=== PATIENT | female | born 1985 | race Caucasian/White ===

== ENCOUNTER 2016-05-30 15:27 | Emergency (ER) | payer MEDICAID ==
[2016-05-30] MEDS ORDERED: ONDANSETRON 4 MG TAB.RAPDIS PO ONE (16:43)
--- NOTE | 2016-05-30 16:44 | ER Document Report ---
ED Medical Screen (RME) - General Stated Complaint: ABDOMINAL PAIN Notes: Patient complains of left upper quadrant pain for 2 days. Patient states the pain is so bad it makes her feel nauseous, but denies vomiting or diarrhea. No known fever. Patient states she was told she had gallbladder sludge about 3 years ago, but never had it removed. Patient states pain shooting through to back. I have greeted and performed a rapid initial assessment of this patient. A comprehensive ED assessment and evaluation of the patient, analysis of test results and completion of the medical decision making process will be conducted by additional ED providers. TRAVEL OUTSIDE OF THE [place] IN LAST 30 DAYS: No - Related Data Allergies/Adverse Reactions: No Known Allergies Allergy (Verified 05/30/16 16:41) Past Medical History - Social History Family history: Reviewed & Not Pertinent - Past Medical History Cardiac Medical History: Denies: Hx Coronary Artery Disease, Hx Hypertension Pulmonary Medical History: Reports: Hx Asthma, Hx Bronchitis Neurological Medical History: Reports: Hx Migraine Endocrine Medical History: Denies: Hx Diabetes Mellitus Type 1, Hx Diabetes Mellitus Type 2 Renal/ Medical History: Reports: Hx Ovarian Cysts Malignancy Medical History: Reports: Hx Cervical Cancer - dysplasia, hpv GI Medical History: Reports: Hx Gastritis, Hx Gastroesophageal Reflux Disease Skin Medical History: Reports Hx Cellulitis, Reports Hx MRSA Infectious Medical History: Reports: Hx MRSA Past Surgical History: Reports: Hx Section - x2, Hx Gynecologic Surgery - 6 Álvaro laser surgery, Hx Oral Surgery - Immunizations Immunizations up to date: Yes Hx Diphtheria, Pertussis, Tetanus Vaccination: Yes - <5 years Physical Exam - Vital signs Vitals: Temp Pulse Resp BP Pulse Ox 99.0 F 104 H 20 112/74 99 05/30/16 15:48 05/30/16 15:48 05/30/16 15:48 05/30/16 15:48 05/30/16 15:48 - Abdominal Inspection: Normal Notes: Left upper quadrant tender to palpation, causes radiation to left lower quadrant. Also tender over epigastric area. Course - Vital Signs Vital signs: Temp Pulse Resp BP Pulse Ox 99.0 F 104 H 20 112/74 99 05/30/16 15:48 05/30/16 15:48 05/30/16 15:48 05/30/16 15:48 05/30/16 15:48
[2016-05-30 17:09] LABS: ABSOLUTE BASOPHILS # (AUTO) 0.1 10^3/uL (0.0-0.2); ABSOLUTE LYMPHOCYTES (AUTO) 0.5 10^3/uL (0.5-4.7); ABSOLUTE MONOCYTES (AUTO) 0.9 10^3/uL (0.1-1.4); ABSOLUTE NEUT (AUTO) 7.5 10^3/uL (1.7-8.2); BASOPHILS % (AUTO) 0.7 % (0-2); EOSINOPHILS % (AUTO) 0.4 % (0-6); HEMATOCRIT 46.8 % (36.0-47.0); HGB HCT DIFFERENCE 1.2; LYMPHOCYTES % (AUTO) 5.5 % (13-45); MEAN CORPUSCULAR HEMOGLOBIN 28.6 pg (27.0-33.4); MEAN CORPUSCULAR HGB CONC 34.1 g/dL (32.0-36.0); MEAN CORPUSCULAR VOLUME 84 fl (80-97); MONOCYTES % (AUTO) 9.8 % (3-13); RED BLOOD COUNT 5.59 10^6/uL (3.72-5.28); RED CELL DISTRIBUTION WIDTH 14.2 % (11.5-14.0); SEGMENTED NEUTROPHILS % (AUTO) 83.6 % (42-78); WHITE BLOOD COUNT 8.9 10^3/uL (4.0-10.5)
[2016-05-30 17:22] LABS: APPEARANCE,URINE SLIGHTLY-CLOUDY; BILIRUBIN,URINE NEGATIVE (NEGATIVE); GLUCOSE, URINE NEGATIVE (NEGATIVE); KETONES,URINE NEGATIVE (NEGATIVE); LEUKOCYTE ESTERASE,URINE NEGATIVE (NEGATIVE); NITRITE,URINE NEGATIVE (NEGATIVE); PROTEIN,URINE NEGATIVE (NEGATIVE); URINE SPECIFIC GRAVITY 1.011; UROBILINOGEN,URINE NEGATIVE mg/dL (<2.0)
[2016-05-30 17:34] LABS: ALANINE AMINOTRANSFERASE 26 U/L (9-52); ALBUMIN 5.1 g/dL (3.5-5.0); ALKALINE PHOSPHATASE 93 U/L (38-126); ANION GAP 14 (5-19); ASPARTATE AMINO TRANSFERASE 16 U/L (14-36); BILIRUBIN,DIRECT 0.1 mg/dL (0.0-0.4); BLOOD UREA NITROGEN 7 mg/dL (7-20); CALCIUM 10.7 mg/dL (8.4-10.2); CARBON DIOXIDE 26 mmol/L (22-30); CHLORIDE 104 mmol/L (98-107); CREATININE RESULT 0.44 mg/dL (0.52-1.25); GLUCOSE 100 mg/dL (75-110); LIPASE 143.2 U/L (23-300); POTASSIUM 4.5 mmol/L (3.6-5.0); SODIUM 144.3 mmol/L (137-145); TOTAL PROTEIN 7.5 g/dL (6.3-8.2)
[2016-05-30] MEDS ORDERED: METOCLOPRAMIDE HCL ORAL SOLN 10 MG/10 ML UDCUP PO ONE (22:07)
[2016-05-30] MEDS ORDERED: LIDOCAINE 2% VISCOUS SOLN 20 ML UDCUP PO ONE (22:07)
[2016-05-30] MEDS ORDERED: MAG HYDROX/AL HYDROX/SIMETH SUSP 30 ML UDCUP PO ONE (22:07)
[2016-05-30] MEDS ORDERED: HYDROCODONE/ACETAMINOPHEN 5-325 MG 6 TAB/DSPK PO PRN (22:07)
--- NOTE | 2016-05-30 22:09 | ER Document Report ---
ED GI/ - General Chief Complaint: Abdominal Pain Stated Complaint: ABDOMINAL PAIN Time seen by provider: 22:09 Mode of Arrival: Ambulatory Information source: Patient TRAVEL OUTSIDE OF THE [place] IN LAST 30 DAYS: No - HPI Patient complains to provider of: Abdominal pain Onset: Other - 2 days Timing/Duration: Persistent Quality of pain: Achy, Cramping Severity at maximum: Moderate Severity in ED: Moderate Pain Level: 3 Location: Epigastric, LUQ Associated symptoms: Nausea. denies: Diarrhea, Vomiting Exacerbated by: Denies Relieved by: Denies Similar symptoms previously: Yes Notes: 05/31/16 02:56 Patient is a 30-year-old female who presents to the emergency room complaining of epigastric and left upper quadrant pain that's been going on for the past 2 days, she reports nausea but no vomiting or diarrhea, states her last bowel movement was this morning and small, her last menstrual period was in 2009 because she has an IUD placed, she denies any vaginal discharge or irregular bleeding, denies any dysuria or hematuria - Related Data Allergies/Adverse Reactions: No Known Allergies Allergy (Verified 05/30/16 16:41) Past Medical History - General Information source: Patient - Social History Smoking Status: Current Every Day Smoker Chew tobacco use (# tins/day): No Frequency of alcohol use: None Drug Abuse: None Family History: None Patient has suicidal ideation: No Patient has homicidal ideation: No - Past Medical History Cardiac Medical History: Denies: Hx Coronary Artery Disease, Hx Hypertension Pulmonary Medical History: Reports: Hx Asthma, Hx Bronchitis Neurological Medical History: Reports: Hx Migraine Endocrine Medical History: Denies: Hx Diabetes Mellitus Type 1, Hx Diabetes Mellitus Type 2 Renal/ Medical History: Reports: Hx Ovarian Cysts. Denies: Hx Peritoneal Dialysis Malignancy Medical History: Reports: Hx Cervical Cancer - dysplasia, hpv GI Medical History: Reports: Hx Gastritis, Hx Gastroesophageal Reflux Disease Skin Medical History: Reports Hx Cellulitis, Reports Hx MRSA Infectious Medical History: Reports: Hx MRSA Past Surgical History: Reports: Hx Section - x2, Hx Gynecologic Surgery - 6 Álvaro laser surgery, Hx Oral Surgery - Immunizations Immunizations up to date: Yes Hx Diphtheria, Pertussis, Tetanus Vaccination: Yes - <5 years Review of Systems - Review of Systems Constitutional: No symptoms reported EENT: No symptoms reported Cardiovascular: No symptoms reported Respiratory: No symptoms reported Gastrointestinal: See HPI Genitourinary: No symptoms reported Female Genitourinary: No symptoms reported Musculoskeletal: No symptoms reported Skin: No symptoms reported Hematologic/Lymphatic: No symptoms reported Neurological/Psychological: No symptoms reported -: Yes All other systems reviewed and negative Physical Exam - Vital signs Vitals: Temp Pulse Resp BP Pulse Ox 99.0 F 104 H 20 112/74 99 05/30/16 15:48 05/30/16 15:48 05/30/16 15:48 05/30/16 15:48 05/30/16 15:48 Interpretation: Normal - General General appearance: Appears well, Alert - HEENT Head: Normocephalic, Atraumatic Eyes: Normal Pupils: PERRL - Respiratory Respiratory status: No respiratory distress Chest status: Nontender Breath sounds: Normal Chest palpation: Normal - Cardiovascular Rhythm: Regular Heart sounds: Normal auscultation Murmur: No - Abdominal Inspection: Normal Distension: No distension Bowel sounds: Normal Tenderness: Tender - Epigastric Organomegaly: No organomegaly - Back Back: Normal, Nontender - Extremities General upper extremity: Normal inspection, Nontender, Normal color, Normal ROM , Normal temperature General lower extremity: Normal inspection, Nontender, Normal color, Normal ROM , Normal temperature, Normal weight bearing. No: Ron's sign - Neurological Neuro grossly intact: Yes Cognition: Normal Orientation: AAOx4 Tim Coma Scale Eye Opening: Spontaneous Tim Coma Scale Verbal: Oriented [place] Coma Scale Motor: Obeys Commands [place] Coma Scale Total: 15 Speech: Normal Motor strength normal: LUE, RUE, LLE, RLE Sensory: Normal - Psychological Associated symptoms: Normal affect, Normal mood - Skin Skin Temperature: Warm Skin Moisture: Dry Skin Color: Normal Course - Re-evaluation Re-evalutation: 05/31/16 02:57 Laboratory findings were discussed with patient at bedside which are unremarkable, patient is noted to be a frequent visitor to this emergency room for multiple pain complaints in the past, therefore she was not provided with a prescription for narcotic pain medication, she was advised to follow-up with her primary care provider or return if symptoms worsen, patient acknowledges understanding and agreement with this plan - Vital Signs Vital signs: Temp Pulse Resp BP Pulse Ox 98.7 F 88 20 111/63 98 05/30/16 22:38 05/30/16 22:38 05/30/16 22:38 05/30/16 22:38 05/30/16 22:38 - Laboratory Result Diagrams: 05/30/16 16:45 05/30/16 16:45 Laboratory results interpreted by me: 05/30/16 05/30/16 16:45 16:45 RBC 5.59 H Hgb 16.0 H RDW 14.2 H Seg Neutrophils % 83.6 H Lymphocytes % 5.5 L Creatinine 0.44 L Calcium 10.7 H Albumin 5.1 H Discharge - Discharge Clinical Impression: Epigastric abdominal pain Condition: Stable Disposition: HOME, SELF-CARE Instructions: Abdominal Pain ([facility]) Additional Instructions: Follow up with your primary care provider in one to 2 days. Return to the emergency room immediately if symptoms worsen or any additional concerns. Prescriptions: Esomeprazole Mag Trihydrate [Nexium] 40 mg PO DAILY #30 cap Referrals: JOHN ESQUIVEL MD [Primary Care Provider] - Follow up as needed
[2016-05-30 22:40] VITALS: BP 111/63
== END 2016-05-30 22:15 | disposition home or self-care (01) ==
LOC: ER 15:27
DX: R10.13 Epigastric pain (principal); R10.12 Left upper quadrant pain; R11.0 Nausea; F17.200 Nicotine dependence, unspecified, uncomplicated; J45.909 Unspecified asthma, uncomplicated; Z97.5 Presence of (intrauterine) contraceptive device; Z86.14 Personal history of Methicillin resistant Staphylococcus aureus infection; Z87.42 Personal history of other diseases of the female genital tract; Z87.19 Personal history of other diseases of the digestive system
CPT/HCPCS: 99284; 36415; 84702; 83690; 85025; 80053; 81001; S0119; J3490 ×3

== ENCOUNTER 2016-09-13 19:02 | Emergency (ER) | payer MEDICAID ==
--- NOTE | 2016-09-13 21:36 | ER Document Report ---
HPI - HPI Pain Level: 3 Notes: Patient is a 30-year-old female who presents the ED complaining of infection to both of her thumbs 1 week with worsening pain over the last 4 days. Patient states that she believes she got bit by something on her thumbs and the began getting red and swollen a few days thereafter. She has been using triple antibiotic and soaking it daily. Patient states that she does have a history of MRSA. She still eating and drinking without any problems. Denies any drug allergies. Patient states that she does take medications daily for mental health issues. She denies any headache, fever, URI, sore throat, chest pain, palpitations, cough, wheeze, shortness of breath, abdominal pain, nausea/ vomiting/diarrhea, muscle paralysis/weakness. Patient does smoke but denies any illicit drug use. Denies any other significant past medical history - ROS Notes: REVIEW OF SYSTEMS: CONSTITUTIONAL : Denies fever, chills, or sweats. Denies recent illness. EENT: Denies eye, ear, throat, or mouth pain or symptoms. Denies nasal or sinus congestion or discharge. Denies throat, tongue, or mouth swelling or difficulty swallowing. CARDIOVASCULAR: Denies chest pain. Denies palpitations or racing or irregular heart beat. Denies ankle edema. RESPIRATORY: Denies cough, cold, or chest congestion. Denies shortness of breath, difficulty breathing, or wheezing. GASTROINTESTINAL: Denies abdominal pain or distention. Denies nausea, vomiting , or diarrhea. Denies blood in vomitus, stools, or per rectum. Denies black, tarry stools. Denies constipation. GENITOURINARY: Denies difficulty urinating, painful urination, burning, frequency, blood in urine, or discharge. MUSCULOSKELETAL: Denies back or neck pain or stiffness. Denies joint pain or swelling. SKIN: see hpi NEUROLOGICAL: Denies confusion or altered mental status. Denies passing out or loss of consciousness. Denies dizziness or lightheadedness. Denies headache. Denies weakness or paralysis or loss of use of either side. Denies problems with gait or speech. Denies sensory loss, numbness, or tingling. ALL OTHER SYSTEMS REVIEWED AND NEGATIVE. Dictation was performed using [employer] voice recognition software - REPRODUCTIVE Reproductive: DENIES: : - DERM Skin Color: Normal Past Medical History - Social History Smoking Status: Current Every Day Smoker Family History: None Patient has suicidal ideation: No Patient has homicidal ideation: No - Past Medical History Cardiac Medical History: Denies: Hx Coronary Artery Disease, Hx Hypertension Pulmonary Medical History: Reports: Hx Asthma, Hx Bronchitis Neurological Medical History: Reports: Hx Migraine Endocrine Medical History: Denies: Hx Diabetes Mellitus Type 1, Hx Diabetes Mellitus Type 2 Renal/ Medical History: Reports: Hx Ovarian Cysts. Denies: Hx Peritoneal Dialysis Malignancy Medical History: Reports: Hx Cervical Cancer - dysplasia, hpv GI Medical History: Reports: Hx Gastritis, Hx Gastroesophageal Reflux Disease Skin Medical History: Reports Hx Cellulitis, Reports Hx MRSA Infectious Medical History: Reports: Hx MRSA Past Surgical History: Reports: Hx Section - x2, Hx Gynecologic Surgery - 6 Álvaro laser surgery, Hx Oral Surgery - Immunizations Immunizations up to date: Yes Hx Diphtheria, Pertussis, Tetanus Vaccination: Yes - <5 years Vertical Provider Document - CONSTITUTIONAL Agree With Documented VS: Yes Notes: PHYSICAL EXAMINATION: GENERAL: Well-appearing, well-nourished and in no acute distress. NECK: Normal range of motion, supple without lymphadenopathy LUNGS: Breath sounds clear to auscultation bilaterally and equal. No wheezes rales or rhonchi. HEART: Regular rate and rhythm without murmurs, rubs, gallops. Musculoskeletal: hands/digits b/l: FROM to passive/active. Strength 5+/5. Extremities: No cyanosis, clubbing, or edema b/l. Peripheral pulses 2+. Capillary refill less than 3 seconds. NEUROLOGICAL: Cranial nerves grossly intact. Normal speech, normal gait. Normal sensory, motor exams PSYCH: Normal mood, normal affect. SKIN: + erythema, small (0.1-0.2cm) abscess, + purulent discharge, + tenderness to the rt thumb. Mild erythemic area to the left thumb. No lymphangitis. No prox lymphadenopathy. N/V intact. Pustular material expressed and wound cx obtained. No large enough for an I&D. - INFECTION CONTROL TRAVEL OUTSIDE OF THE [place] IN LAST 30 DAYS: No - RESPIRATORY O2 Sat by Pulse Oximetry: 100 Course - Re-evaluation Re-evalutation: 09/13/16 21:40 Patient is an afebrile, well-hydrated, 30-year-old female presents to the ED with a mild abscess/cellulitis to her right thumb and mild cellulitis to the left thumb. 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 Vitals are stable. PE otherwise unremarkable. Low suspicion for any septic joint or sepsis at this time. Wound culture obtained. The purulent material was completely expressed from the abscess on an already opened area. Bacitracin and Band-Aid placed. I will cover her with Keflex and Bactrim. Recheck with her PCM in 2-3 days. Return to the ED with any worsening/concerning symptoms otherwise as reviewed. Patient is in agreement. - Vital Signs Vital signs: Temp Pulse Resp BP Pulse Ox 98.1 F 81 16 111/72 100 09/13/16 19:10 09/13/16 19:10 09/13/16 19:10 09/13/16 19:10 09/13/16 19:10 Discharge - Discharge Clinical Impression: Abscess Condition: Stable Disposition: HOME, SELF-CARE Instructions: Abscess ([facility]), Cephalexin ([facility]), Trimethoprim-Sulfa ([facility]) Additional Instructions: Take medication as directed Tylenol/ibuprofen as needed Apply bacitracin Recheck with PCM in 2-3 days Return to the ED with any worsening symptoms and/or development of fever, headache, chest pain, palpitations, syncope, shortness of breath, trouble breathing, abdominal pain, n/v/d, muscle weakness/paralysis, numbness/tingling, red streaks, or other worsening symptoms that are concerning to you. Prescriptions: Cephalexin Monohydrate [Keflex 500 mg Capsule] 500 mg PO BID #20 capsule Sulfamethoxazole/Trimethoprim [Bactrim Ds Tablet] 1 each PO BID #20 tablet Forms: Smoking Cessation Education Referrals: JOHN ESQUIVEL MD [ACTIVE STAFF] - Follow up in 3-5 days
[2016-09-13 22:02] VITALS: BP 101/62
== END 2016-09-13 22:00 | disposition home or self-care (01) ==
LOC: ER 19:02
DX: L02.511 Cutaneous abscess of right hand (principal); L03.011 Cellulitis of right finger; L03.012 Cellulitis of left finger; J45.909 Unspecified asthma, uncomplicated; F17.200 Nicotine dependence, unspecified, uncomplicated; Z86.14 Personal history of Methicillin resistant Staphylococcus aureus infection; Z79.899 Other long term (current) drug therapy
CPT/HCPCS: 87070; 87075; 87077; 87186; 87205; 99283

== ENCOUNTER 2017-05-07 18:11 | Emergency (ER) | payer MEDICAID, OTHER ==
[2017-05-07] MEDS ORDERED: ACETAMINOPHEN 325 MG TABLET PO ONE (18:43)
[2017-05-07] MEDS ORDERED: IBUPROFEN 600 MG TABLET PO ONE (18:43)
[2017-05-07] MEDS ORDERED: LIDOCAINE 5% (700 MG) TRANSDERMAL ADH..PATCH TP ONE (18:43)
--- NOTE | 2017-05-07 19:05 | RADIOLOGY REPORT (SQ) ---
EXAM DESCRIPTION: CHEST SINGLE VIEW COMPLETED DATE/TIME: 05/07/2017 6:53 pm REASON FOR STUDY: cp COMPARISON: May 2015 EXAM PARAMETERS: NUMBER OF VIEWS: One view. TECHNIQUE: Single frontal radiographic view of the chest acquired. RADIATION DOSE: NA LIMITATIONS: None. FINDINGS: LUNGS AND PLEURA: No opacities, masses or pneumothorax. No pleural effusion. MEDIASTINUM AND HILAR STRUCTURES: No masses. Contour normal. HEART AND VASCULAR STRUCTURES: Heart normal in size. Normal vasculature. BONES: No acute findings. HARDWARE: None in the chest. OTHER: No other significant finding. IMPRESSION: NO ACUTE RADIOGRAPHIC FINDING IN THE CHEST. TECHNICAL DOCUMENTATION: JOB ID: [id number] 2017 [employer]- All Rights Reserved Reading location - IP/workstation name: [email or web address]
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
[2017-05-07 19:40] VITALS: BP 109/71
--- NOTE | 2017-05-07 21:57 | EKG REPORT ---
SEVERITY:- NORMAL ECG - SINUS RHYTHM : Confirmed by: Jesse Quarles 07-May-2017 21:56:59
== END 2017-05-07 19:40 | disposition home or self-care (01) ==
LOC: ER 18:11
DX: R07.89 Other chest pain (principal); M54.9 Dorsalgia, unspecified; F17.200 Nicotine dependence, unspecified, uncomplicated; V47.5XXA Car driver injured in collision with fixed or stationary object in traffic accident, initial encounter; Z86.14 Personal history of Methicillin resistant Staphylococcus aureus infection
CPT/HCPCS: 71045; 93005; 93010; 99284

== ENCOUNTER 2017-06-30 16:22 | Emergency (ER) | payer MEDICAID ==
[2017-06-30] MEDS ORDERED: KETOROLAC TROMETHAMINE INJ/PF 30 MG/1 ML SDV IM ONE (16:42)
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
--- NOTE | 2017-06-30 17:09 | RADIOLOGY REPORT (SQ) ---
EXAM DESCRIPTION: TIBIA FIBULA RIGHT COMPLETED DATE/TIME: 06/30/2017 4:56 pm REASON FOR STUDY: leg pain s/p fall COMPARISON: None. NUMBER OF VIEWS: Two views. TECHNIQUE: Two radiographic images acquired of the right tibia and fibula to include the knee and an kle in at least one projection. LIMITATIONS: None. FINDINGS: MINERALIZATION: Normal. BONES: No acute fracture or dislocation. No worrisome bone lesions. SOFT TISSUES: No obvious swelling or foreign body. OTHER: No other significant finding. IMPRESSION: NEGATIVE STUDY OF THE RIGHT TIBIA AND FIBULA. NO RADIOGRAPHIC EVIDENCE OF ACUTE INJURY. TECHNICAL DOCUMENTATION: JOB ID: [id number] [employer]- All Rights Reserved Reading location - IP/workstation name: [email or web address]
--- NOTE | 2017-06-30 17:09 | RADIOLOGY REPORT (SQ) ---
EXAM DESCRIPTION: HIP RIGHT AP/LATERAL COMPLETED DATE/TIME: 06/30/2017 4:56 pm REASON FOR STUDY: leg pain s/p fall COMPARISON: None. NUMBER OF VIEWS: Two views. TECHNIQUE: AP pelvis and additional frog-leg view of the right hip. LIMITATIONS: None. FINDINGS: MINERALIZATION: Normal. RIGHT HIP: No fracture or dislocation. No worrisome bone lesions. LEFT HIP: No fracture or dislocation. No worrisome bone lesions. PUBIS AND ISCHIUM: No fracture. PELVIS: No fracture. SACRUM: No fracture or dislocation. No worrisome bone lesions. LOWER LUMBAR SPINE: No fracture or dislocation. No worrisome bone lesions. No significant disc disea se. SOFT TISSUES: IUD in the uterus. OTHER: No other significant finding. IMPRESSION: NEGATIVE STUDY OF THE RIGHT HIP. NO RADIOGRAPHIC EVIDENCE OF ACUTE INJURY. TECHNICAL DOCUMENTATION: JOB ID: [id number] [employer]- All Rights Reserved Reading location - IP/workstation name: [email or web address]
== END 2017-06-30 17:32 | disposition home or self-care (01) ==
LOC: ER 16:22
DX: M79.661 Pain in right lower leg (principal); M70.61 Trochanteric bursitis, right hip; M46.1 Sacroiliitis, not elsewhere classified; M25.551 Pain in right hip; W10.9XXA Fall (on) (from) unspecified stairs and steps, initial encounter; R25.2 Cramp and spasm; M54.9 Dorsalgia, unspecified; G89.29 Other chronic pain; Z79.891 Long term (current) use of opiate analgesic; F17.200 Nicotine dependence, unspecified, uncomplicated; J45.909 Unspecified asthma, uncomplicated
CPT/HCPCS: 99283; 96372; 73502; 73590; J1885

== ENCOUNTER 2018-01-19 15:21 | Emergency (ER) | payer MEDICAID ==
[2018-01-19] MEDS ORDERED: LIDOCAINE 2% VISCOUS SOLN 20 ML UDCUP PO ONE (16:01)
[2018-01-19] MEDS ORDERED: METOCLOPRAMIDE HCL ORAL SOLN 10 MG/10 ML UDCUP PO ONE (16:01)
[2018-01-19] MEDS ORDERED: KETOROLAC TROMETHAMINE INJ/PF 30 MG/1 ML SDV IV ONE (16:01)
[2018-01-19] MEDS ORDERED: MAG HYDROX/AL HYDROX/SIMETH SUSP 30 ML UDCUP PO ONE (16:01)
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
--- NOTE | 2018-01-19 16:52 | RADIOLOGY REPORT (SQ) ---
EXAM DESCRIPTION: U/S ABDOMEN LIMITED W/O DOP COMPLETED DATE/TIME: 01/19/2018 4:41 pm REASON FOR STUDY: ruq pain, hx of sludge COMPARISON: None. TECHNIQUE: Dynamic and static grayscale images acquired of the abdomen and recorded on PACS. Additio nal selected color Doppler and spectral images recorded. LIMITATIONS: None. FINDINGS: PANCREAS: No masses. Visualized pancreatic duct normal caliber. LIVER: No masses. Echotexture normal. LIVER VASCULATURE: Normal directional flow of the main portal vein and hepatic veins. GALLBLADDER: No stones. Normal wall thickness. No pericholecystic fluid. ULTRASOUND-DETECTED STEPHENS'S SIGN: Negative. INTRAHEPATIC DUCTS AND COMMON DUCT: CBD and intrahepatic ducts normal caliber. No filling defects. INFERIOR VENA CAVA: Normal flow. AORTA: No aneurysm. RIGHT KIDNEY: Normal size. Normal echogenicity. No solid or suspicious masses. No hydronephrosis. No calcifications. PERITONEAL AND RIGHT PLEURAL SPACE: No ascites or effusions. OTHER: No other significant findings. IMPRESSION: NORMAL RIGHT UPPER QUADRANT ULTRASOUND. TECHNICAL DOCUMENTATION: JOB ID: [id number] [employer]- All Rights Reserved Reading location - IP/workstation name: [email or web address]
[2018-01-19 17:29] LABS: ABSOLUTE LYMPHOCYTES (AUTO) 0.5 10^3/uL (0.5-4.7); ABSOLUTE MONOCYTES (AUTO) 0.4 10^3/uL (0.1-1.4); BASOPHILS % (AUTO) 0.5 % (0-2); EOSINOPHILS % (AUTO) 0.5 % (0-6); HEMATOCRIT 42.2 % (36.0-47.0); HEMOGLOBIN 14.5 g/dL (12.0-15.5); LYMPHOCYTES % (AUTO) 5.1 % (13-45); MEAN CORPUSCULAR HEMOGLOBIN 29.2 pg (27.0-33.4); MEAN CORPUSCULAR HGB CONC 34.4 g/dL (32.0-36.0); MEAN CORPUSCULAR VOLUME 85 fl (80-97); MONOCYTES % (AUTO) 4.4 % (3-13); PLATELET COUNT 364 10^3/uL (150-450); RED BLOOD COUNT 4.97 10^6/uL (3.72-5.28); RED CELL DISTRIBUTION WIDTH 14.1 % (11.5-14.0); SEGMENTED NEUTROPHILS % (AUTO) 89.5 % (42-78); TOTAL CELLS COUNTED % (AUTO) 100 %; WHITE BLOOD COUNT 8.9 10^3/uL (4.0-10.5)
[2018-01-19 17:35] LABS: APPEARANCE,URINE CLOUDY; BILIRUBIN,URINE NEGATIVE (NEGATIVE); COLOR,URINE YELLOW; GLUCOSE, URINE NEGATIVE (NEGATIVE); KETONES,URINE NEGATIVE (NEGATIVE); LEUKOCYTE ESTERASE,URINE NEGATIVE (NEGATIVE); NITRITE,URINE POSITIVE (NEGATIVE); PROTEIN,URINE 30 mg/dL (NEGATIVE); URINE SPECIFIC GRAVITY 1.021; UROBILINOGEN,URINE NEGATIVE mg/dL (<2.0)
[2018-01-19 17:37] LABS: ALANINE AMINOTRANSFERASE 15 U/L (9-52); ALBUMIN 4.4 g/dL (3.5-5.0); ALKALINE PHOSPHATASE 85 U/L (38-126); ANION GAP 15 (5-19); ASPARTATE AMINO TRANSFERASE 15 U/L (14-36); BILIRUBIN,DIRECT 0.1 mg/dL (0.0-0.4); BILIRUBIN,TOTAL 0.8 mg/dL (0.2-1.3); BLOOD UREA NITROGEN 9 mg/dL (7-20); CALCIUM 9.6 mg/dL (8.4-10.2); CARBON DIOXIDE 25 mmol/L (22-30); CHLORIDE 102 mmol/L (98-107); GLUCOSE 116 mg/dL (75-110); LIPASE 103.2 U/L (23-300); POTASSIUM 4.4 mmol/L (3.6-5.0); SODIUM 142.1 mmol/L (137-145); TOTAL PROTEIN 6.9 g/dL (6.3-8.2)
--- NOTE | 2018-01-19 18:19 | ER Document Report ---
ED General - General Chief Complaint: Abdominal Pain Stated Complaint: UPPER ABDOMINAL PAIN Time Seen by Provider: 01/19/18 15:55 Notes: Patient is a 32-year-old female presenting to the emergency department complaining of 4 days of sharp epigastric abdominal pain. Patient states nothing makes the pain better or worse. Patient also admits to 3 episodes of vomiting each day nonbloody nonbilious. Patient denies any diarrhea, dysuria, vaginal discharge. Patient states she has a history of chronic lower back pain she takes Vicodin and 800 mg of ibuprofen for. States in the last couple of weeks her lower back pain has been intense so she has been taking 2 of the 800 mg Motrin's every 6 hours to help for the pain. Patient states she ran out of her Vicodin prescription. Patient denies vomiting blood, or any black stools. Past medical history: Chronic lumbar back pain Medications: Zanaflex, Vicodin, 800 mg Motrin Allergies: None Surgical history: , LEEP procedure Patient admits to cigarette smoking, occasional EtOH use, denies illicit drug use. TRAVEL OUTSIDE OF THE [place] IN LAST 30 DAYS: No - Related Data Allergies/Adverse Reactions: No Known Allergies Allergy (Verified 01/19/18 15:22) Past Medical History - General Information source: Patient - Social History Smoking Status: Current Every Day Smoker Chew tobacco use (# tins/day): No Frequency of alcohol use: Rare Drug Abuse: None Lives with: Family Family History: Arthritis. denies: CAD, COPD, CVA, DM, Hyperlipidemia, Hypertension, Malignancy, Thyroid Disfunction Patient has suicidal ideation: No Patient has homicidal ideation: No - Past Medical History Cardiac Medical History: Denies: Hx Coronary Artery Disease, Hx Hypertension Pulmonary Medical History: Reports: Hx Asthma, Hx Bronchitis Neurological Medical History: Reports: Hx Migraine Endocrine Medical History: Denies: Hx Diabetes Mellitus Type 1, Hx Diabetes Mellitus Type 2 Renal/ Medical History: Reports: Hx Ovarian Cysts. Denies: Hx Peritoneal Dialysis Malignancy Medical History: Reports: Hx Cervical Cancer - dysplasia, hpv GI Medical History: Reports: Hx Gastritis, Hx Gastroesophageal Reflux Disease Musculoskeletal Medical History: Reports Hx Musculoskeletal Deformity, Reports Hx Musculoskeletal Trauma Skin Medical History: Reports Hx Cellulitis, Reports Hx MRSA Infectious Medical History: Reports: Hx MRSA Past Surgical History: Reports: Hx Section - x2, Hx Gynecologic Surgery - 6 Leep laser surgery, Hx Oral Surgery - Immunizations Immunizations up to date: Yes Hx Diphtheria, Pertussis, Tetanus Vaccination: No - <5 years Review of Systems - Review of Systems Constitutional: denies: Chills, Fever EENT: denies: Ear pain, Nose congestion, Throat swelling Cardiovascular: denies: Chest pain, Palpitations, Heart racing Respiratory: denies: Cough, Short of breath Gastrointestinal: See HPI Genitourinary: See HPI Female Genitourinary: See HPI Musculoskeletal: See HPI Skin: No symptoms reported Hematologic/Lymphatic: No symptoms reported Neurological/Psychological: No symptoms reported Physical Exam - Vital signs Vitals: Temp Pulse Resp BP Pulse Ox 98.3 F 86 16 120/62 98 01/19/18 15:39 01/19/18 15:39 01/19/18 15:39 01/19/18 15:39 01/19/18 15:39 - Notes Notes: GENERAL: Alert, interacts well. No acute distress. HEAD: Normocephalic, atraumatic. EYES: Pupils equal, round, and reactive to light. Extraocular movements intact. ENT: Oral mucosa moist, tongue midline. NECK: Full range of motion. Supple. Trachea midline. LUNGS: Clear to auscultation bilaterally, no wheezes, rales, or rhonchi. No respiratory distress. HEART: Regular rate and rhythm. No murmur ABDOMEN: Soft, Non-distended. Bowel sounds present in all 4 quadrants. Mild suprapubic tenderness, mild epigastric tenderness more so in the left upper quadrant. Negative Mckeon sign, no McBurney's point tenderness. EXTREMITIES: Moves all 4 extremities spontaneously. No edema, normal radial and dorsalis pedis pulses bilaterally. No cyanosis. BACK: no cervical, thoracic, lumbar midline tenderness. No saddle anesthesia, normal distal neurovascular exam. No CVA tenderness bilaterally NEUROLOGICAL: Alert and oriented x3. Normal speech. cranial nerves II through XII grossly intact PSYCH: Normal affect, normal mood. SKIN: Warm, dry, normal turgor. No rashes or lesions noted. Course - Re-evaluation Re-evalutation: 01/19/18 18:18 Discussed urinary tract infection diagnosis via urine. Patient denies dysuria but does admit to some suprapubic tenderness. No leukocytosis seen on lab works, no anemia, no electrolyte abnormalities. Ultrasound reveals no signs of gallstones. Discussed with patient that she should not be taking a total of 1600 mg of Motrin at once. Discussed this may have caused her to develop a stomach ulcer. States the best imaging to view a stomach ulcer would be through an EGD. Discussed follow-up with gastroenterology. No signs of anemia or bleeding on patient's lab work. Patient denies vomiting blood or any bloody stools, or melena stools. Nursing notes reviewed, vitals reviewed. - Vital Signs Vital signs: Temp Pulse Resp BP Pulse Ox 98.3 F 86 16 120/62 98 01/19/18 15:39 01/19/18 15:39 01/19/18 15:39 01/19/18 15:39 01/19/18 15:39 - Laboratory Result Diagrams: 01/19/18 17:10 01/19/18 17:10 Laboratory results interpreted by me: 01/19/18 01/19/18 01/19/18 17:10 17:10 17:10 RDW 14.1 H Seg Neutrophils % 89.5 H Lymphocytes % 5.1 L Creatinine 0.39 L Glucose 116 H Urine Protein 30 H Urine Nitrite POSITIVE H Discharge - Discharge Clinical Impression: Epigastric abdominal pain Urinary tract infection Qualifiers: Urinary tract infection type: acute cystitis Hematuria presence: without hematuria Qualified Code(s): N30.00 - Acute cystitis without hematuria Condition: Stable Disposition: HOME, SELF-CARE Instructions: Cephalexin ([facility]), Urinary Tract Infection ([facility]) Additional Instructions: As we discussed you have been seen and treated in the emergency room for I urinary tract infection and epigastric abdominal pain. You should take medications as prescribed. As we discussed at length your epigastric pain could be caused from an ulcer. There are currently no signs of bleeding from this ulcer so you need to follow-up with gastroenterology. Phone numbers will be included in this packet. Please return to the emergency room for any other concerning symptoms. Prescriptions: Cephalexin Monohydrate [Keflex 500 mg Capsule] 500 mg PO BID 7 Days #14 capsule Sucralfate [Carafate 1 gm Tablet] 1 gm PO QID #20 tablet Referrals: JOHN ESQUIVEL MD [Primary Care Provider] - Follow up as needed [facility] [Provider Group] - Follow up as needed [facility] [Provider Group] - Follow up as needed
[2018-01-19 18:33] VITALS: BP 113/72
== END 2018-01-19 18:33 | disposition home or self-care (01) ==
LOC: ER 15:21
DX: N30.00 Acute cystitis without hematuria (principal); R10.13 Epigastric pain; R11.10 Vomiting, unspecified; G89.29 Other chronic pain; M54.5 Low back pain; F17.210 Nicotine dependence, cigarettes, uncomplicated; Z86.14 Personal history of Methicillin resistant Staphylococcus aureus infection
CPT/HCPCS: 99284; 96374; 36415; 87086; 83690; 85025; 81025; 87088; 80053; 81001; 87186; 76705; J3490 ×3; J1885

== ENCOUNTER 2018-08-21 16:21 | Emergency (ER) | payer MEDICAID ==
[2018-08-21 16:28] VITALS: BP 140/92
[2018-08-21] MEDS ORDERED: HYDROMORPHONE HCL INJ/PF 2 MG/ML AMPULE IV ONE ×2 (16:39→18:21)
[2018-08-21] MEDS ORDERED: DIPH/PERTUSS(ACELL)/TETANUS VAC/PF 0.5 ML SYR (>=10YO) IM ONE (16:39)
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
[2018-08-21] MEDS ORDERED: KETOROLAC TROMETHAMINE INJ/PF 30 MG/1 ML SDV IV ONE ×2 (18:25→18:26)
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
[2018-08-21] MEDS ORDERED: SILVER SULFADIAZINE 1% CREAM 50 GM TP ONE (19:01)
[2018-08-21] MEDS ORDERED: TETRACAINE HCL 0.5% OPH SOLN 4 ML OD ONE (19:34)
[2018-08-21] MEDS ORDERED: TETRACAINE HCL 0.5% OPH SOLN 4 ML ONE (19:36)
== END 2018-08-21 20:07 | disposition home or self-care (01) ==
LOC: ER 16:21
DX: T20.06XA Burn of unspecified degree of forehead and cheek, initial encounter (principal); T22.00XA Burn of unspecified degree of shoulder and upper limb, except wrist and hand, unspecified site, initial encounter; X17.XXXA Contact with hot engines, machinery and tools, initial encounter; F17.200 Nicotine dependence, unspecified, uncomplicated; J45.909 Unspecified asthma, uncomplicated
CPT/HCPCS: 96376; 99283; 90471; 96374; 96375; 90715; J1885; J1170; J3490

== ENCOUNTER 2019-08-18 10:55 | Emergency (ER) | payer MEDICAID ==
[2019-08-18] MEDS ORDERED: ONDANSETRON HCL INJ/PF 4 MG/2 ML SDV IV ONE (11:48)
[2019-08-18] MEDS ORDERED: MORPHINE SULFATE 10 MG/ML INJ IV ONE (11:48)
[2019-08-18] MEDS ORDERED: NORMAL SALINE 1000 ML 1,000 ML IV ONE (11:49)
--- NOTE | 2019-08-18 12:00 | ER Document Report ---
ED GI/ - General Chief Complaint: Abdominal Pain Stated Complaint: ABDOMINAL PAIN Primary Care Provider: JOHN ESQUIVEL MD [Primary Care Provider] - Follow up as needed Notes: CHIEF COMPLAINT: Left flank pain for 2 days HPI: 33-year-old female presenting with a fairly constant left flank left upper quadrant pain for the last 2 days with some nausea vomiting no fever. Patient did have some urinary frequency and urgency last night. No history of kidney stones. States she is having difficulty finding a position of comfort. Denies vaginal discharge or bleeding ROS: See HPI - all other systems were reviewed and are otherwise negative Constitutional: no fever or recent illness Eyes: no drainage, no blurred vision ENT: no runny nose, no sore throat Cardiovascular: no chest pain Resp: no SOB, no cough GI: Positive vomiting, no diarrhea, positive flank pain : no dysuria, no vaginal discharge, positive frequency Integumentary: no rash Allergy: no hives Musculoskeletal: no extremity pain or swelling Neurological: no numbness/tingling, no weakness MEDICATIONS: I agree with the patient medications as charted by the RN. ALLERGIES: I agree with the allergies as charted by the RN. PAST MEDICAL HISTORY/PAST SURGICAL HISTORY: Reviewed and agree as charted by RN. SOCIAL HISTORY: Reviewed and agree as charted by RN. FAMILY HISTORY: No significant familial comorbid conditions directly related to patient complaint EXAM: Reviewed vital signs as charted by RN. CONSTITUTIONAL: Alert and oriented and responds appropriately to questions. Well-appearing; well-nourished, moderately uncomfortable HEAD: Normocephalic; atraumatic EYES: PERRL; Conjunctivae clear, sclerae non-icteric ENT: normal nose; no rhinorrhea; moist mucous membranes; pharynx without lesions noted NECK: Supple without meningismus; non-tender; no cervical lymphadenopathy, no masses CARD: RRR; no murmurs, no clicks, no rubs, no gallops; symmetric distal pulses RESP: Normal chest excursion without splinting or tachypnea; breath sounds clear and equal bilaterally; no wheezes, no rhonchi, no rales, 97% on room air not hypoxic ABD/GI: Normal bowel sounds; non-distended; soft, mild tenderness to the left upper quadrant left lateral flank on palpation, no right lower quadrant tenderness on palpation, no rebound, no guarding; no palpable organomegaly or masses BACK: The back appears normal and is non-tender to palpation, there is mild left CVA tenderness EXT: Normal ROM in all joints; non-tender to palpation; no cyanosis, no effusions, no edema SKIN: Normal color for age and race except for the patient's back which is discolored with venous dilation; warm; dry; good turgor; no acute lesions noted NEURO: Moves all extremities equally; Motor and sensory function intact PSYCH: The patient's mood and manner are appropriate. Grooming and personal hygiene are appropriate. MDM: 33-year-old female who appears moderately uncomfortable with left flank pain over the last 2 days. Suspect kidney stone. No lower abdominal or pelvic pain suggesting torsion at this time. Will obtain screening labs, plan initially for CT to evaluate for possible renal colic. Patient does have venous dilatation to the skin of the back, uses heating pads chronically on the low back, advised to stop this behavior TRAVEL OUTSIDE OF THE [place] IN LAST 30 DAYS: No - Related Data Allergies/Adverse Reactions: No Known Allergies Allergy (Verified 08/21/18 16:22) Past Medical History - Social History Smoking Status: Unknown if Ever Smoked Family History: Arthritis. denies: CAD, COPD, CVA, DM, Hyperlipidemia, Hypertension, Malignancy, Thyroid Disfunction - Past Medical History Cardiac Medical History: Denies: Hx Coronary Artery Disease, Hx Hypertension Pulmonary Medical History: Reports: Hx Asthma, Hx Bronchitis Neurological Medical History: Reports: Hx Migraine Endocrine Medical History: Denies: Hx Diabetes Mellitus Type 1, Hx Diabetes Mellitus Type 2 Renal/ Medical History: Reports: Hx Ovarian Cysts. Denies: Hx Peritoneal Dialysis Malignancy Medical History: Reports: Hx Cervical Cancer - dysplasia, hpv GI Medical History: Reports: Hx Gastritis, Hx Gastroesophageal Reflux Disease Musculoskeletal Medical History: Reports Hx Musculoskeletal Deformity, Reports Hx Musculoskeletal Trauma Skin Medical History: Reports Hx Cellulitis, Reports Hx MRSA Infectious Medical History: Reports: Hx MRSA Past Surgical History: Reports: Hx Section - x2, Hx Gynecologic Surgery - 6 Leep laser surgery, Hx Oral Surgery - Immunizations Immunizations up to date: Yes Hx Diphtheria, Pertussis, Tetanus Vaccination: No - <5 years Physical Exam - Vital signs Vitals: Temp 98.2 F 08/18/19 10:56 Course - Re-evaluation Re-evalutation: 08/18/19 15:26 Patient imaging studies show UTI, bilateral renal calculi but no active stone passing at this time. Patient may have mild early pyelonephritis. There is some iatrogenic air in the bladder but patient did not have mechanical trauma. This may be part of the UTI but the CT scan did not show perforation. Will place patient on antibiotics, pain medication refer to PCP and urology - Vital Signs Vital signs: Temp Pulse Resp BP Pulse Ox 97.9 F 94 17 102/83 100 08/18/19 11:03 08/18/19 11:03 08/18/19 11:03 08/18/19 11:03 08/18/19 11:03 - Laboratory Result Diagrams: 08/18/19 12:26 08/18/19 12:26 Laboratory results interpreted by me: 08/18/19 08/18/19 08/18/19 12:26 12:26 13:52 RBC 5.46 H Hgb 15.9 H Lymph % (Auto) 6.2 L Absolute Lymphs (auto) 0.4 L Seg Neutrophils % 85.7 H Carbon Dioxide 32 H Creatinine 0.48 L Calcium 10.4 H Urine Protein 30 H Urine Ketones TRACE H Urine Nitrite POSITIVE H Urine Urobilinogen 4.0 H Ur Leukocyte Esterase TRACE H Discharge - Discharge Clinical Impression: Acute left flank pain, Nephrolithiasis Acute cystitis Qualifiers: Hematuria presence: with hematuria Qualified Code(s): N30.01 - Acute cystitis with hematuria Condition: Stable Disposition: HOME, SELF-CARE Additional Instructions: CT imaging today showed that you have kidney stones in both kidneys. It was also noted today that you have a urinary infection. Take the antibiotics and pain medication as prescribed do not drive if taking narcotic pain medication. Follow-up closely with both your primary care provider and urology for further evaluation and treatment call for appointment. If you develop fever greater than 101, uncontrolled pain or vomiting at home return for reevaluation Prescriptions: Ciprofloxacin HCl [Cipro 500 mg Tablet] 500 mg PO BID #20 tablet Hydrocodone/Acetaminophen [[place] 5-325 mg Tablet] 1 tab PO Q4 PRN #15 tablet PRN Reason: Referrals: JOHN ESQUIVEL MD [Primary Care Provider] - Follow up as needed CHARLENE MARTE MD [NO LOCAL MD] - Follow up as needed
[2019-08-18 12:46] LABS: ABSOLUTE BASOPHILS # (AUTO) 0.1 10^3/uL (0.0-0.2); ABSOLUTE LYMPHOCYTES (AUTO) 0.4 10^3/uL (0.5-4.7); ABSOLUTE MONOCYTES (AUTO) 0.4 10^3/uL (0.1-1.4); ABSOLUTE NEUT (AUTO) 5.5 10^3/uL (1.7-8.2); BASOPHILS % (AUTO) 0.8 % (0-2); EOSINOPHILS % (AUTO) 0.4 % (0-6); HEMATOCRIT 46.2 % (36.0-47.0); HEMOGLOBIN 15.9 g/dL (12.0-15.5); LYMPHOCYTES % (AUTO) 6.2 % (13-45); MEAN CORPUSCULAR HEMOGLOBIN 29.1 pg (27.0-33.4); MEAN CORPUSCULAR HGB CONC 34.3 g/dL (32.0-36.0); MEAN CORPUSCULAR VOLUME 85 fl (80-97); MONOCYTES % (AUTO) 6.9 % (3-13); PLATELET COUNT 331 10^3/uL (150-450); RED BLOOD COUNT 5.46 10^6/uL (3.72-5.28); RED CELL DISTRIBUTION WIDTH 13.8 % (11.5-14.0); SEGMENTED NEUTROPHILS % (AUTO) 85.7 % (42-78); TOTAL CELLS COUNTED % (AUTO) 100 %; WHITE BLOOD COUNT 6.4 10^3/uL (4.0-10.5)
[2019-08-18 12:56] LABS: ALBUMIN 4.8 g/dL (3.5-5.0); ALKALINE PHOSPHATASE 100 U/L (38-126); ANION GAP 8 (5-19); ASPARTATE AMINO TRANSFERASE 20 U/L (14-36); BILIRUBIN,TOTAL 1.2 mg/dL (0.2-1.3); BLOOD UREA NITROGEN 19 mg/dL (7-20); CALCIUM 10.4 mg/dL (8.4-10.2); CARBON DIOXIDE 32 mmol/L (22-30); CHLORIDE 99 mmol/L (98-107); GLUCOSE 106 mg/dL (75-110); POTASSIUM 4.2 mmol/L (3.6-5.0); TOTAL PROTEIN 7.6 g/dL (6.3-8.2)
[2019-08-18 14:17] LABS: APPEARANCE,URINE CLOUDY; BILIRUBIN,URINE NEGATIVE (NEGATIVE); COLOR,URINE AMBER; GLUCOSE, URINE NEGATIVE (NEGATIVE); KETONES,URINE TRACE mg/dL (NEGATIVE); LEUKOCYTE ESTERASE,URINE TRACE (NEGATIVE); NITRITE,URINE POSITIVE (NEGATIVE); PROTEIN,URINE 30 mg/dL (NEGATIVE); URINE SPECIFIC GRAVITY 1.021
--- NOTE | 2019-08-18 14:56 | RADIOLOGY REPORT (SQ) ---
EXAM DESCRIPTION: CT ABD/PELVIS NO ORAL OR IV IMAGES COMPLETED DATE/TIME: 08/18/2019 2:34 pm REASON FOR STUDY: left flank pain COMPARISON: None. TECHNIQUE: CT scan of the abdomen and pelvis performed without intravenous or oral contrast. Images reviewed with lung, soft tissue, and bone windows. Reconstructed coronal and sagittal MPR images revi ewed. All images stored on PACS. All CT scanners at this facility use dose modulation, iterative reconstruction, and/or weight based d osing when appropriate to reduce radiation dose to as low as reasonably achievable (ALARA). [facility]: Dose Right [facility]: CareDose [facility]: Dose Right [facility]: Teradose 4D [facility]: Smart Clipsure RADIATION DOSE: CT Rad equipment meets quality standard of care and radiation dose reduction techniq ues were employed. CTDIvol: 4.8 mGy. DLP: 241 mGy-cm.mGy. LIMITATIONS: None. FINDINGS: LOWER CHEST: No significant findings. No nodules or infiltrates. NON-CONTRASTED LIVER, SPLEEN, ADRENALS: Evaluation limited by lack of IV contrast. No identified sign ificant masses. PANCREAS: No masses. No peripancreatic inflammatory changes. GALLBLADDER: No identified stones by CT criteria. No inflammatory changes to suggest cholecystitis. RIGHT KIDNEY AND URETER: No suspicious masses. Assessment limited by lack of IV contrast. Punctate nonobstructing upper pole stone. No hydronephrosis or hydroureter. LEFT KIDNEY AND URETER: No suspicious masses. Assessment limited by lack of IV contrast. Punctate n onobstructing lower pole stone. No hydronephrosis or hydroureter. AORTA AND RETROPERITONEUM: No aneurysm. No retroperitoneal masses or adenopathy. BOWEL AND PERITONEAL CAVITY: No obvious masses or inflammatory changes. No free fluid. APPENDIX: Normal. PELVIS, BLADDER, AND ABDOMINAL WALL:Decompressed urinary bladder. Anti dependent gas within the blad nila lumen. Intrauterine device within the endometrial canal. No discrete mass or adenopathy. Likel y trace pelvic fluid, likely physiologic. BONES: No acute bony abnormality. No discrete lytic or blastic osseous lesions. OTHER: No other significant finding. IMPRESSION: 1. Bilateral nonobstructing punctate renal stones. No hydronephrosis. 2. Gas within the urinary bladder lumen, possibly iatrogenic. Recommend correlation with patient hi story and urinalysis. 3. No other evidence of acute intra-abdominal/pelvic process. COMMENT: Quality ID # [id number]: Final reports with documentation of one or more dose reduction techniques (e.g., Automated exposure control, adjustment of the mA and/or kV according to patient size, use of iterative reconstruction technique) TECHNICAL DOCUMENTATION: JOB ID: [id number] 2010 [email or web address] All Rights Reserved Reading location - IP/workstation name: [email or web address]
[2019-08-18] MEDS ORDERED: CEFTRIAXONE 1 GM/D5W RTU 1 GM/50 ML RTUPB IV ONE (15:01)
[2019-08-18 16:07] VITALS: BP 105/84
== END 2019-08-18 16:09 | disposition home or self-care (01) ==
LOC: ER 10:55
DX: N20.0 Calculus of kidney (principal); N30.01 Acute cystitis with hematuria; R10.9 Unspecified abdominal pain; R10.12 Left upper quadrant pain; R11.2 Nausea with vomiting, unspecified; R35.0 Frequency of micturition; R39.15 Urgency of urination; J45.909 Unspecified asthma, uncomplicated
CPT/HCPCS: 99284; 96361; 96375; 96365; 36415; 87086; 85025; 81025; 87088; 80053; 81001; 74176; J2270; J2405; J7030; J0696; 87186

== ENCOUNTER 2019-08-22 10:47 | Emergency (ER) | payer MEDICAID ==
--- NOTE | 2019-08-22 11:24 | ER Document Report ---
ED GI/ - General Chief Complaint: Possible Kidney Stone Stated Complaint: VOMITING Primary Care Provider: JOHN ESQUIVEL MD [Primary Care Provider] - Follow up as needed Notes: 33-year-old woman presents to the emergency department with nausea vomiting and flank pain. She was diagnosed with a urinary tract infection 08/18/2019 seen in the emergency department. States that she began vomiting last night and unable to keep any other medications down at this time. Patient denies of fever at this time. TRAVEL OUTSIDE OF THE [place] IN LAST 30 DAYS: No - Related Data Allergies/Adverse Reactions: No Known Allergies Allergy (Verified 08/21/18 16:22) Past Medical History - Social History Smoking Status: Current Every Day Smoker Chew tobacco use (# tins/day): No Frequency of alcohol use: Occasional Drug Abuse: None Family History: Arthritis. denies: CAD, COPD, CVA, DM, Hyperlipidemia, Hypertension, Malignancy, Thyroid Disfunction Patient has homicidal ideation: No - Past Medical History Cardiac Medical History: Denies: Hx Coronary Artery Disease, Hx Hypertension Pulmonary Medical History: Reports: Hx Asthma, Hx Bronchitis Neurological Medical History: Reports: Hx Migraine Endocrine Medical History: Denies: Hx Diabetes Mellitus Type 1, Hx Diabetes Ellie itus Type 2 Renal/ Medical History: Reports: Hx Ovarian Cysts. Denies: Hx Peritoneal Dialysis Malignancy Medical History: Reports: Hx Cervical Cancer - dysplasia, hpv GI Medical History: Reports: Hx Gastritis, Hx Gastroesophageal Reflux Disease Musculoskeletal Medical History: Reports Hx Musculoskeletal Deformity, Reports Hx Musculoskeletal Trauma Skin Medical History: Reports Hx Cellulitis, Reports Hx MRSA Infectious Medical History: Reports: Hx MRSA Past Surgical History: Reports: Hx Section - x2, Hx Gynecologic Surgery - 6 Leep laser surgery, Hx Oral Surgery - Immunizations Immunizations up to date: Yes Hx Diphtheria, Pertussis, Tetanus Vaccination: No - <5 years Review of Systems - Review of Systems Notes: Constitutional: Negative for fever. HENT: Negative for sore throat. Eyes: Negative for visual changes. Cardiovascular: Negative for chest pain. Respiratory: Negative for shortness of breath. Gastrointestinal: + nausea and vomiting Genitourinary: Negative for dysuria. Musculoskeletal: + Back pain. Skin: Negative for rash. Neurological: Negative for headaches, weakness or numbness. 10 point ROS negative except as marked above and in HPI. Physical Exam - Vital signs Vitals: Temp Pulse Resp BP Pulse Ox 97.6 F 71 20 145/77 H 100 08/22/19 11:02 08/22/19 11:02 08/22/19 11:02 08/22/19 11:02 08/22/19 11:02 - Notes Notes: PHYSICAL EXAMINATION: Physical Exam: General: Well-nourished well-developed 33-year-old female marked distress secondary to left flank painnausea and vomiting HEENT: NC/AT, pupils equal round and reactive to light, MM moist,nares clear, oropharynx clear, airway patent Neck: supple, no adenopathy, no masses. Good range of motion Lungs: clear, no wheezing, no rales no rhonchi CVS: Regular rate and rhythm no murmur gallop or rub Abdomen: Soft, active, nontender, no masses, no hepatosplenomegaly Ext: No edema, clubbing or cyanosis. Neuro: Alert and responsive, moving all 4 extremities on command, cranial nerves intact, no focal findings Skin: Intact no open lesions, no rash PSYCH: Normal mood, normal affect. Course - Vital Signs Vital signs: Temp Pulse Resp BP Pulse Ox 97.6 F 71 20 145/77 H 100 08/22/19 11:16 08/22/19 11:02 08/22/19 11:02 08/22/19 11:02 08/22/19 11:02 08/22/19 16:19 Patient appears to be doing much better after hydromorphone for pain, Compazine and Zofran for nausea. Review of her labs are unremarkable. She is presently taking Cipro for UTI. Nausea and vomiting with associated treatment for UTI. Patient is being discharged home with a prescription for Phenergan suppositories and tramadol for pain. Have asked her to follow-up with her primary care doctor as needed. The patient is in agreement with this plan. - Laboratory Result Diagrams: 08/22/19 11:10 08/22/19 11:10 Laboratory results interpreted by me: 08/22/19 08/22/19 11:10 11:10 RBC 5.55 H Hgb 16.1 H Lymph % (Auto) 6.6 L Absolute Lymphs (auto) 0.4 L Seg Neutrophils % 83.9 H Creatinine 0.46 L Calcium 10.4 H I have reviewed laboratory data and used this information for the treatment decisions regarding the patient. Discharge - Discharge Clinical Impression: Acute left flank pain Nausea and vomiting Qualifiers: Vomiting type: unspecified Vomiting Intractability: unspecified Qualified Code(s): R11.2 - Nausea with vomiting, unspecified Condition: Good Disposition: HOME, SELF-CARE Instructions: Vomiting ([facility]) Additional Instructions: He is seen in the emergency department today with nausea vomiting and continued flank pain. A prescription is given for Phenergan suppositories as well as tramadol for pain. Please follow-up with your primary care doctor as needed If your symptoms are worsening and you have other concerns he may return to the emergency department for further evaluation and treatment HOME CARE INSTRUCTIONS & INFORMATION: Thank you for choosing us for your medical needs. We hope you're satisfied with the care you received. After you leave, you must properly care for your problem and, at the same time, observe its progress. Any condition can change. Some illnesses can change rapidly over hours or days. If your condition worsens, return to the Emergency Department or see your physician promptly. ABOUT YOUR X-RAYS AND EKG'S: If you had an EKG or X-rays taken, they have been read by the Emergency Physician. The X-rays and EKG's will also be read by a Radiologist or Offset Machine Operator within 24 hours. If discrepancies are noted, you will be notified by telephone. Please be certain the ED has a correct telephone number & address where you can be reached. Also, realize that some fractures or abnormalities do not show up on initial X-rays. If your symptoms continue, see your physician. ABOUT YOUR LABORATORY TEST: If you had laboratory tests, the results have been reviewed by the Emergency Physician. Some test results (for example cultures) may not be available for several days. You will be contacted if any test result shows you need additional treatment. Please be certain the ED has a correct telephone number and address where you can be reached. ABOUT YOUR MEDICATIONS: You will receive instructions on how to take your medicine on the prescription label you receive. Additional information may be provided by the Pharmacy. If you have questions afterwards, call the ED for clarification or further instructions. Some prescribed medications may cause drowsiness. Do not perform tasks such as driving a car or operating machinery without consulting your Pharmacist. If you feel you need a refill of pain medication, your condition will need re-evaluation. Please do not call for a refill of any medication. ABOUT YOUR SIGNATURE: Signature of this document acknowledges to followin. Understanding that you received emergency treatment and that you may be released before al medical problems are known or treated. Please be certain the ED has a correct phone number & address where you can be reached. 2. Acknowledgement that you will arrange for follow-up care as recommended. 3. Authorization for the Emergency Physician to provide information to your follow-up Physician in order to maximize your care. AT ANY TIME, IF YOUR SYMPTOMS CHANGE SIGNIFICANTLY OR WORSEN OR YOU DEVELOP NEW SYMPTOMS, RETURN TO THE EMERGENCY DEPARTMENT IMMEDIATELY FOR RE-EVALUATION. OUR GOAL IS TO PROVIDE EXCELLENT MEDICAL CARE! WE HOPE THAT WE HAVE MET YOUR EXPECTATIONS DURING YOUR EMERGENCY DEPARTMENT VISIT AND THAT YOU FEEL YOU HAVE RECEIVED EXCELLENT CARE! Prescriptions: Tramadol HCl [Ultram 50 mg Tablet] 50 mg PO Q4HP PRN #12 tab PRN Reason: Promethazine HCl [Phenergan 25 mg Supp.rect] 1 supp OH Q6H #12 supp.rect Referrals: JOHN ESQUIVEL MD [Primary Care Provider] - Follow up as needed
[2019-08-22] MEDS ORDERED: PROCHLORPERAZINE EDISYLATE INJ 10 MG/2 ML VIAL IV ONE (11:29)
[2019-08-22] MEDS ORDERED: KETOROLAC TROMETHAMINE INJ/PF 30 MG/1 ML SDV IV ONE (11:30)
[2019-08-22] MEDS ORDERED: ONDANSETRON HCL INJ/PF 4 MG/2 ML SDV IV ONE (11:31)
[2019-08-22 11:42] LABS: ABSOLUTE BASOPHILS # (AUTO) 0.1 10^3/uL (0.0-0.2); ABSOLUTE EOSINOPHILS # (AUTO) 0.1 10^3/uL (0.0-0.6); ABSOLUTE LYMPHOCYTES (AUTO) 0.4 10^3/uL (0.5-4.7); ABSOLUTE MONOCYTES (AUTO) 0.4 10^3/uL (0.1-1.4); ABSOLUTE NEUT (AUTO) 5.4 10^3/uL (1.7-8.2); BASOPHILS % (AUTO) 1.3 % (0-2); EOSINOPHILS % (AUTO) 1.2 % (0-6); HEMATOCRIT 46.7 % (36.0-47.0); HEMOGLOBIN 16.1 g/dL (12.0-15.5); LYMPHOCYTES % (AUTO) 6.6 % (13-45); MEAN CORPUSCULAR HEMOGLOBIN 29.1 pg (27.0-33.4); MEAN CORPUSCULAR HGB CONC 34.6 g/dL (32.0-36.0); MEAN CORPUSCULAR VOLUME 84 fl (80-97); PLATELET COUNT 350 10^3/uL (150-450); RED BLOOD COUNT 5.55 10^6/uL (3.72-5.28); RED CELL DISTRIBUTION WIDTH 13.3 % (11.5-14.0); SEGMENTED NEUTROPHILS % (AUTO) 83.9 % (42-78); TOTAL CELLS COUNTED % (AUTO) 100 %; WHITE BLOOD COUNT 6.4 10^3/uL (4.0-10.5)
[2019-08-22 11:49] LABS: ALKALINE PHOSPHATASE 113 U/L (38-126); ANION GAP 12 (5-19); ASPARTATE AMINO TRANSFERASE 18 U/L (14-36); BILIRUBIN,TOTAL 1.2 mg/dL (0.2-1.3); BLOOD UREA NITROGEN 9 mg/dL (7-20); CALCIUM 10.4 mg/dL (8.4-10.2); CARBON DIOXIDE 26 mmol/L (22-30); CHLORIDE 101 mmol/L (98-107); GLUCOSE 110 mg/dL (75-110); POTASSIUM 4.7 mmol/L (3.6-5.0); TOTAL PROTEIN 7.7 g/dL (6.3-8.2)
[2019-08-22 12:02] LABS: APPEARANCE,URINE SLIGHTLY-CLOUDY; BILIRUBIN,URINE NEGATIVE (NEGATIVE); COLOR,URINE YELLOW; GLUCOSE, URINE NEGATIVE (NEGATIVE); KETONES,URINE NEGATIVE (NEGATIVE); PROTEIN,URINE NEGATIVE (NEGATIVE); URINE SPECIFIC GRAVITY 1.014; UROBILINOGEN,URINE NEGATIVE mg/dL (<2.0)
[2019-08-22] MEDS ORDERED: HYDROMORPHONE HCL INJ/PF 2 MG/ML AMPULE IV ONE (14:00)
[2019-08-22 16:54] VITALS: BP 114/75
== END 2019-08-22 16:54 | disposition home or self-care (01) ==
LOC: ER 10:47
DX: R11.2 Nausea with vomiting, unspecified (principal); R10.9 Unspecified abdominal pain; F17.200 Nicotine dependence, unspecified, uncomplicated; J45.909 Unspecified asthma, uncomplicated
CPT/HCPCS: 99284; 96374; 96375; 36415; 85025; 80053; 81001; J1885; J1170; J0780; J2405